=== PATIENT | female | born 1945 | race Hispanic/Latino ===

== ENCOUNTER 2021-11-01 23:43 | Inpatient (IN) | payer MEDICARE ==
[~2021-11-01] VITALS: Ht 157.5 cm; Wt 59.9 kg
[~2021-11-01 23:43] MED LIST: ADVIL100 MG PO; ASCORBIC ACID500 MG PO; FEOSOL325 MG PO; MULTI-VITAMIN1 EACH PO
[2021-11-01] MEDS ORDERED: SODIUM CHLORIDE 0.9% 1000ML 1,000 ML IV STA (23:48)
[2021-11-01] MEDS ORDERED: NALOXONE HCL 2MG/2 ML SYRINGE IV STA (23:52)
[2021-11-02] MEDS ORDERED: NALOXONE HCL INJ 0.4 MG/ML AMP ONE (00:03)
[2021-11-02 00:26] LABS: BASOPHILS % 0.2 % (0.0-1.0); EOSINOPHILS # (AUTO) 0.2 (0.0-0.4); HEMATOCRIT 44.4 % (34.2-44.1); HEMOGLOBIN 14.3 g/dL (12.0-16.0); LYMPHOCYTES # (AUTO) 0.8 (1.0-3.2); LYMPHOCYTES % 8.6 % (18.0-39.1); MEAN CORPUSCULAR HEMOGLOBIN 33.1 pg (28-32); MEAN CORPUSCULAR HGB CONC 32.2 g/dL (31-35); MEAN CORPUSCULAR VOLUME 102.8 fL (81-99); MONOCYTES # (AUTO) 0.6 (0.2-0.8); MONOCYTES % 5.8 % (4.4-11.3); NEUTROPHILS % 82.8 % (38.7-80.0); PLATELET COUNT 175 x10e3/uL (140-360); RED BLOOD COUNT 4.32 x10e6/uL (3.6-5.1); RED CELL DISTRIBUTION WIDTH 14.5 % (11.7-14.4)
[2021-11-02 00:41] LABS: ALANINE AMINOTRANSFERASE 24 IU/L (0-55); ALBUMIN 3.9 g/dL (3.5-5.0); ALBUMIN/GLOBULIN RATIO 1.1 (0.8-2.0); ALKALINE PHOSPHATASE 76 IU/L (40-150); BLOOD UREA NITROGEN 23 mg/dL (7-26); BUN/CREATININE RATIO 31 (6-25); CALCIUM 9.3 mg/dL (8.4-10.2); CARBON DIOXIDE 21 mmol/L (22-29); CHLORIDE 107 mmol/L (98-107); CREATINE KINASE 72 IU/L (29-168); CREATININE, SERUM 0.75 mg/dL (0.57-1.11); EST GLOMERULAR FILTRATION RATE 75 ML/MIN (60-); GLUCOSE 144 mg/dL (74-118); SODIUM 139 mmol/L (136-145)
[2021-11-02] MEDS ORDERED: ACETAMINOPHEN 325 MG TAB PO STA (00:42)
[2021-11-02] MEDS ORDERED: ONDANSETRON HCL INJ 2MG/ML 2ML 2 MG/ML VIAL IV STA (01:03)
[2021-11-02 01:07] LABS: CLARITY,URINE CLEAR (CLEAR); COLOR,URINE YELLOW (YELLOW); KETONES,URINE NEGATIVE (NEGATIVE); LEUKOCYTE ESTERASE ,URINE NEGATIVE (NEGATIVE); NITRITE,URINE NEGATIVE (NEGATIVE); PROTEIN,URINE DIPSTICK NEGATIVE (NEGATIVE); URINE UROBILINOGEN 0.2 mg/dL (0.2 - 1); WBC,URINE (MAN) 0-5 /HPF (0-5)
[2021-11-02 01:08] LABS: AMPHETAMINES SCREEN,URINE NEGATIVE (NEGATIVE); BENZODIAZEPINES SCREEN,URINE NEGATIVE (NEGATIVE); EPITHELIAL CELLS,URINE FEW /LPF; PHENCYCLIDINE SCREEN,URINE NEGATIVE (NEGATIVE)
[2021-11-02] MEDS ORDERED: ONDANSETRON HCL INJ 2MG/ML 2ML 2 MG/ML VIAL ONE (01:14)
[2021-11-02 01:22] LABS: BACTERIA,URINE MODERATE /HPF; MUCUS,URINE MODERATE (RARE)
[2021-11-02] MEDS ORDERED: SODIUM CHLORIDE 0.9% 1000ML 1,000 ML ONE (01:35)
[2021-11-02] MEDS: PIPERACILLIN/TAZOBACTAM 3.375 GM in SODIUM CHLORIDE 0.9% 50ML 50 ML IV SCH ×4 (01:39→18:12)
[2021-11-02] MEDS: SODIUM CHLORIDE 0.9% 1000ML 1,000 ML IV SCH ×3 (01:39→18:12)
[2021-11-02] MEDS ORDERED: KETOROLAC TROMETHAMINE 30 MG/ML VIAL IV STA (02:21)
[2021-11-02] MEDS ORDERED: IOPAMIDOL 370 MG/ML 200 ML INFUS..BTL INJ ONE ×2 (02:23→05:48)
[2021-11-02] MEDS ORDERED: SODIUM CHLORIDE 0.9% 50ML 0 ML ONE (02:24)
[2021-11-02] MEDS ORDERED: KETOROLAC TROMETHAMINE 30 MG/ML VIAL ONE (02:34)
[2021-11-02] MEDS ORDERED: ACETAMINOPHEN 325 MG TAB PO PRN (05:15)
[2021-11-02] MEDS ORDERED: SODIUM CHLORIDE 0.9% 50ML 50 ML ONE (05:48)
[2021-11-02 08:14] VITALS: BP 120/55
[2021-11-02 08:55] LABS: CREATINE KINASE MB 7.1 ng/mL (0-5.0)
[2021-11-02 09:30] VITALS: BP 128/58
[2021-11-02] MEDS ORDERED: ONDANSETRON HCL INJ 2MG/ML 2ML 2 MG/ML VIAL IV PRN (11:00)
[2021-11-02] MEDS ORDERED: METOPROLOL TARTRATE INJ 1 MG/ML VIAL IV PRN (11:00)
[2021-11-02] MEDS ORDERED: POLYETHYLENE GLYCOL 3350 17 GM PACK PO PRN (11:00)
[2021-11-02 11:31] VITALS: BP 131/57
[2021-11-02 16:16] VITALS: BP 133/60
[2021-11-02] MEDS: FERROUS SULFATE 325 MG TAB PO SCH (18:12)
[2021-11-02] MEDS: ASCORBIC ACID 500 MG TAB PO SCH (18:12)
[2021-11-02] MEDS: FAMOTIDINE 20 MG TAB PO SCH (18:13)
[2021-11-02 20:50] VITALS: BP 152/67
[2021-11-02 21:00] VITALS: BP 152/67
[2021-11-02] MEDS ORDERED: TEMAZEPAM 15 MG CAP PO PRN (21:00)
[2021-11-03] VITALS (7 sets, daily range): BP systolic 142–199; BP diastolic 66–84
[2021-11-03] MEDS: SODIUM CHLORIDE 0.9% 1000ML 1,000 ML IV SCH ×2 (00:09→06:10)
[2021-11-03 06:09] LABS: BASOPHILS % 0.4 % (0.0-1.0); EOSINOPHILS # (AUTO) 0.2 (0.0-0.4); HEMATOCRIT 38.7 % (34.2-44.1); HEMOGLOBIN 12.2 g/dL (12.0-16.0); LYMPHOCYTES # (AUTO) 1.9 (1.0-3.2); LYMPHOCYTES % 38.8 % (18.0-39.1); MEAN CORPUSCULAR HEMOGLOBIN 32.9 pg (28-32); MEAN CORPUSCULAR HGB CONC 31.5 g/dL (31-35); MEAN CORPUSCULAR VOLUME 104.3 fL (81-99); MONOCYTES # (AUTO) 0.5 (0.2-0.8); MONOCYTES % 10.2 % (4.4-11.3); NEUTROPHILS # (AUTO) 2.4 (2.1-6.9); PLATELET COUNT 151 x10e3/uL (140-360); RED BLOOD COUNT 3.71 x10e6/uL (3.6-5.1); RED CELL DISTRIBUTION WIDTH 14.6 % (11.7-14.4)
[2021-11-03] MEDS: PIPERACILLIN/TAZOBACTAM 3.375 GM in SODIUM CHLORIDE 0.9% 50ML 50 ML IV SCH ×5 (06:10→18:25)
[2021-11-03 06:27] LABS: ALBUMIN 2.9 g/dL (3.5-5.0); ALBUMIN/GLOBULIN RATIO 1.1 (0.8-2.0); ANION GAP 11.6 mmol/L (8-16); CREATININE, SERUM 0.67 mg/dL (0.57-1.11); POTASSIUM 3.6 mmol/L (3.5-5.1)
[2021-11-03 06:28] LABS: CHOL/HDL RATIO 2.8 (3.0-3.6); MAGNESIUM 1.7 MG/DL (1.3-2.1); PHOSPHORUS 2.6 MG/DL (2.3-4.7)
[2021-11-03 06:51] LABS: THYROID STIMULATING HORMONE 0.718 uIU/mL (0.350-4.940)
[2021-11-03] MEDS: FERROUS SULFATE 325 MG TAB PO SCH ×2 (09:21→18:26)
[2021-11-03] MEDS: ASCORBIC ACID 500 MG TAB PO SCH ×2 (09:21→18:26)
[2021-11-03] MEDS: FAMOTIDINE 20 MG TAB PO SCH ×2 (09:21→18:26)
[2021-11-03] MEDS: MULTIVITAMINS/MINERALS TAB PO SCH (09:21)
[2021-11-03] MEDS: LOSARTAN POTASSIUM 100 MG TAB PO SCH (14:30)
[2021-11-03] MEDS ORDERED: CHOLESTYRAMINE 4 GM PACKET PO PRN (18:30)
[2021-11-03] MEDS ORDERED: ENOXAPARIN SOD INJ 40 MG/0.4 ML SYR SC SCH (21:30)
[2021-11-04] VITALS (9 sets, daily range): BP systolic 143–159; BP diastolic 69–85
[2021-11-04 06:09] LABS: BASOPHILS % 0.5 % (0.0-1.0); EOSINOPHILS # (AUTO) 0.1 (0.0-0.4); EOSINOPHILS % 2.9 % (0.0-6.0); HEMATOCRIT 38.2 % (34.2-44.1); HEMOGLOBIN 12.4 g/dL (12.0-16.0); LYMPHOCYTES # (AUTO) 2.2 (1.0-3.2); LYMPHOCYTES % 53.5 % (18.0-39.1); MEAN CORPUSCULAR HEMOGLOBIN 32.9 pg (28-32); MEAN CORPUSCULAR HGB CONC 32.5 g/dL (31-35); MEAN CORPUSCULAR VOLUME 101.3 fL (81-99); MONOCYTES # (AUTO) 0.4 (0.2-0.8); MONOCYTES % 9.9 % (4.4-11.3); NEUTROPHILS # (AUTO) 1.4 (2.1-6.9); NEUTROPHILS % 32.7 % (38.7-80.0); PLATELET COUNT 178 x10e3/uL (140-360); RED BLOOD COUNT 3.77 x10e6/uL (3.6-5.1); RED CELL DISTRIBUTION WIDTH 14.5 % (11.7-14.4)
[2021-11-04 06:42] LABS: ANION GAP 12.8 mmol/L (8-16); CALCIUM 9.4 mg/dL (8.4-10.2); CREATININE, SERUM 0.74 mg/dL (0.57-1.11); MAGNESIUM 1.9 MG/DL (1.3-2.1); POTASSIUM 3.8 mmol/L (3.5-5.1)
[2021-11-04] MEDS ORDERED: Morphine 2mg Syringe 2 MG/ML SYR ONE (08:53)
[2021-11-04] MEDS: ASCORBIC ACID 500 MG TAB PO SCH ×2 (09:17→17:15)
[2021-11-04] MEDS: FERROUS SULFATE 325 MG TAB PO SCH ×2 (09:17→17:15)
[2021-11-04] MEDS: MULTIVITAMINS/MINERALS TAB PO SCH (09:18)
[2021-11-04] MEDS: LOSARTAN POTASSIUM 100 MG TAB PO SCH (09:18)
[2021-11-04] MEDS ORDERED: ONDANSETRON HCL 4 MG ORAL DISINTEGRATING TAB PO PRN (12:45)
[2021-11-05] VITALS: BP 154/73
[2021-11-05] MEDS ORDERED: NIFEDIPINE 10 MG CAP PO STA (01:19)
[2021-11-05 04:00] VITALS: BP 113/58
[2021-11-05 08:00] VITALS: BP 135/60
[2021-11-05] MEDS: MULTIVITAMINS/MINERALS TAB PO SCH (08:35)
[2021-11-05] MEDS: ASCORBIC ACID 500 MG TAB PO SCH (08:35)
[2021-11-05] MEDS: FERROUS SULFATE 325 MG TAB PO SCH (08:35)
[2021-11-05] MEDS: LOSARTAN POTASSIUM 100 MG TAB PO SCH (08:42)
[2021-11-05 11:39] VITALS: BP 135/60
[2021-11-05 11:40] VITALS: BP 135/60
[2021-11-05 11:56] VITALS: BP 139/68
[2021-11-05] MEDS ORDERED: COZAAR100 MG PO (11:58)
[2021-11-05] MEDS ORDERED: NIFEDIPINE ER30 M1 PO (11:58)
== END 2021-11-05 12:39 | disposition home or self-care (01) | DRG 71 ==
LOC: ER 23:48 → ERHOLD 11-02 01:18 → MED/SURG3 11-02 09:09
PROVIDERS: ADMIT Internal Medicine; ATTEND Internal Medicine
DX: G93.41 Metabolic encephalopathy (principal); K80.10 Calculus of gallbladder with chronic cholecystitis without obstruction; K52.1 Toxic gastroenteritis and colitis; R50.9 Fever, unspecified; G92.8 Other toxic encephalopathy; I10 Essential (primary) hypertension; E11.65 Type 2 diabetes mellitus with hyperglycemia; K76.0 Fatty (change of) liver, not elsewhere classified; K44.9 Diaphragmatic hernia without obstruction or gangrene; K21.9 Gastro-esophageal reflux disease without esophagitis; T36.0X5A Adverse effect of penicillins, initial encounter; Z20.822 Contact with and (suspected) exposure to COVID-19
CPT/HCPCS: 36415; 51700; 70450; 70551; 71045; 71260; 74177; 76705; 78227; 80048; 80053; 80061; 80307; 80320; 80329; 81001; 82140; 82550; 82553; 83036; 83605; 83735; 84100; 84443; 84484; 85025; 87040; 87400; 93005; 93306; 94799; 99284; A9537; J1650; J1885; J2270; J2310; J2405; J2543; J7030; Q9967; U0002